=== PATIENT | male | born 1960 | race Two or more races ===

== ENCOUNTER 2023-03-08 16:57 | Inpatient (IN) | payer MEDICAID ==
[~2023-03-08] VITALS: Ht 160 cm; Wt 66.2 kg
[2023-03-08] MEDS ORDERED: ZOLPIDEM TARTRATE 10 MG TABLET PO PRN (20:45)
[2023-03-08 22:11] VITALS: BP 130/79; PULSE 82; RESP 18; TEMP 97.6; O2SAT 96
[2023-03-08] MEDS ORDERED: INFLUENZA VIRUS VACCINE QVS 2023-24 (6MO+)/PF 60 MCG/0.5 ML SYRINGE IM. ONE (22:30)
[2023-03-09] MEDS: LORazepam 2 MG TABLET PO PRN (03:42)
[2023-03-09] MEDS: HALOPERIDOL 5 MG TABLET PO PRN (03:42)
[2023-03-09] MEDS ORDERED: BACITRACIN 28 GM OINTMENT TP PRN (07:15)
[2023-03-09] MEDS ORDERED: ACETAMINOPHEN 325 MG TABLET PO PRN (07:15)
[2023-03-09] MEDS ORDERED: ONDANSETRON HCL 4 MG TABLET PO PRN (07:15)
[2023-03-09] MEDS ORDERED: OMEPRAZOLE 20 MG CAPSULE PO PRN (07:15)
[2023-03-09] MEDS ORDERED: LOPERAMIDE HCL 2 MG CAPSULE PO PRN (07:15)
[2023-03-09] MEDS ORDERED: DOCUSATE SODIUM 100 MG CAPSULE PO PRN (07:15)
[2023-03-09] MEDS ORDERED: PETROLATUM,WHITE 28 GM JELLY TP PRN (07:15)
[2023-03-09] MEDS ORDERED: MAGNESIUM HYDROXIDE SUSPENSION 30 ML UDCUP PO PRN (07:15)
[2023-03-09] MEDS ORDERED: CloNIDine HCL 0.1 MG TABLET PO PRN (07:15)
[2023-03-09] MEDS ORDERED: BENZOCAINE/MENTHOL LOZENGE PO PRN (07:15)
[2023-03-09] MEDS ORDERED: MAG HYDROX/ALUMINUM HYD/SIMETH ES 30 ML SUSPENSION UDCUP PO PRN (07:15)
[2023-03-09] MEDS ORDERED: ALBUTEROL SULFATE HFA 90 MCG/PUFF 8 GM INHALER IH PRN (07:15)
[2023-03-09] MEDS ORDERED: IBUPROFEN 600 MG TABLET PO PRN (07:15)
[2023-03-09 07:53] LABS: BASOPHILS % (AUTO) 2.7 % (0.0-2.0); EOSINOPHILS % (AUTO) 5.9 % (1.0-6.0); HEMATOCRIT 45.3 % (41-53); HEMOGLOBIN 15.2 g/dL (13.5-17.5); LYMPHOCYTES # (AUTO) 1.6 K/uL (1.0-4.8); LYMPHOCYTES % (AUTO) 23.2 % (22.0-44.0); MEAN CORPUSCULAR HEMOGLOBIN 32.9 pg (26.0-34.0); MEAN CORPUSCULAR HGB CONC 33.6 G/dL (31.0-37.0); MEAN CORPUSCULAR VOLUME 98 fL (80-100); MONOCYTES # (AUTO) 0.7 K/uL (0.1-1.0); MONOCYTES % (AUTO) 10.6 % (2.0-9.0); NEUTROPHILS % (AUTO) 57.6 % (40.0-70.0); PLATELET COUNT (AUTO) 328 K/uL (150-450); RED BLOOD CELL COUNT(AUTO) 4.62 MIL/uL (4.50-5.90); RED CELL DISTRIBUTION WIDTH 13.6 % (11.5-14.5)
[2023-03-09 08:19] LABS: ALANINE AMINOTRANSFERASE 27 U/L (12-78); ALBUMIN 2.9 g/dL (3.4-5.0); ALKALINE PHOSPHATASE 81 U/L (46-116); ANION GAP 8 mmol/L (8-16); ASPARTATE AMINOTRANSFERASE 24 U/L (15-37); BILIRUBIN,TOTAL 0.3 mg/dL (0.1-1.0); CALCIUM, TOTAL 8.6 mg/dL (8.8-10.5); CARBON DIOXIDE 24 mmol/L (22-29); CHLORIDE 112 mmol/L (98-107); CHOL/HDL RATIO 2.9 (4.2-7.3); CHOLESTEROL 129 mg/dL (131-200); CREATININE 0.94 mg/dL (0.60-1.30); FREE T4 (FREE THYROXINE) 0.99 ng/dL (0.76-1.46); GLOMERULAR FILTR. RATE CALC > 60 mL/min (>60); GLUCOSE,RANDOM 97 mg/dL (70-110); HDL CHOLESTEROL 44 mg/dL (40-60); LDL CHOL (CALC.) 72 mg/dL (0-130); POTASSIUM 4.5 mmol/L (3.5-5.1); SODIUM SERUM 144 mmol/L (136-145); T4 (THYROXINE) 6.4 mcg/dL (4.7-13.3); THYROID STIMULATING HORMONE 0.62 uIU/mL (0.36-3.74); TRIGLYCERIDES 66 mg/dL (15-150); UREA NITROGEN, BLOOD 18 mg/dL (7-18)
[2023-03-09 08:21] VITALS: BP 140/72; PULSE 78; RESP 17; TEMP 97.8; O2SAT 98
[2023-03-09 08:36] LABS: HEMOGLOBIN A1C 5.5 % (3.8-5.6)
[2023-03-09 20:00] VITALS: BP 139/80; PULSE 88; RESP 17; TEMP 97.7; O2SAT 98
[2023-03-09] MEDS: OLANZapine 10 MG TABLET PO SCH (20:02)
[2023-03-10 07:57] VITALS: BP 141/73; PULSE 77; RESP 17; TEMP 98; O2SAT 98
[2023-03-10 08:00] VITALS: BP 141/73; PULSE 77; RESP 17; TEMP 98; O2SAT 98
[2023-03-10] MEDS: LORazepam 2 MG TABLET PO PRN (13:26)
[2023-03-10 15:39] VITALS: RESP 17
[2023-03-10 16:39] VITALS: RESP 16
[2023-03-10] MEDS: OLANZapine 10 MG TABLET PO SCH (20:01)
[2023-03-10 22:46] VITALS: BP 118/65; PULSE 65; RESP 17; TEMP 98; O2SAT 98
[2023-03-11 08:04] VITALS: BP 118/65; PULSE 69; RESP 17; TEMP 98.1; O2SAT 98
[2023-03-11 16:20] VITALS: BP 131/93; PULSE 93; RESP 17; TEMP 98; O2SAT 98
[2023-03-11] MEDS: LORazepam 2 MG TABLET PO PRN (16:26)
[2023-03-11] MEDS: HALOPERIDOL 5 MG TABLET PO PRN (16:26)
[2023-03-11] MEDS: NICOTINE POLACRILEX 4 MG LOZENGE PO PRN (17:25)
[2023-03-11] MEDS: OLANZapine 10 MG TABLET PO SCH (20:27)
[2023-03-11 21:47] VITALS: BP 138/83; PULSE 83; RESP 17; TEMP 98.3; O2SAT 98
[2023-03-12 07:31] LABS: APPEARANCE,URINE CLEAR (CLEAR); BILIRUBIN,URINE NEGATIVE (NEGATIVE); COLOR,URINE LIGHT YELLOW (YELLOW); GLUCOSE, URINE (UA) NEGATIVE (NEGATIVE); KETONES,URINE NEGATIVE (NEGATIVE); LEUKOCYTE ESTERASE ,URINE NEGATIVE (NEGATIVE); NITRATE,URINE NEGATIVE (NEGATIVE); OCCULT BLOOD,URINE NEGATIVE (NEGATIVE); PH,URINE 5.5 (5.0-8.0); PH,URINE DRUG SCREEN 5.5 (5.0-8.0); PROTEIN,URINE NEGATIVE (NEGATIVE); SPECIFIC GRAVITIY, URINE 1.016 (1.003-1.030); UROBILINOGEN,URINE <=1.0 mg/dL (<=1.0)
[2023-03-12 07:40] LABS: ALCOHOL, URINE DRUG SCREEN NEGATIVE (NEGATIVE); AMPHET/METH SCREEN,URINE POSITIVE (NEGATIVE); BARBITURATE SCREEN, URINE NEGATIVE (NEGATIVE); BENZODIAZEPINES SCREEN,URINE NEGATIVE (NEGATIVE); CANNABINOID SCREEN,URINE POSITIVE (NEGATIVE); COCAINE SCREEN,URINE NEGATIVE (NEGATIVE); METHADONE SCREEN, URINE NEGATIVE (NEGATIVE); OPIATE SCREEN,URINE NEGATIVE (NEGATIVE); PHENCYCLIDINE SCREEN,URINE NEGATIVE (NEGATIVE)
[2023-03-12 08:21] VITALS: BP 130/89; PULSE 78; RESP 18; TEMP 98; O2SAT 99
[2023-03-12] MEDS: NICOTINE POLACRILEX 4 MG LOZENGE PO PRN (13:10)
[2023-03-12] MEDS: OLANZapine 10 MG TABLET PO SCH (20:27)
[2023-03-12 20:29] VITALS: BP 131/88; PULSE 90; RESP 18; TEMP 97.7; O2SAT 99
[2023-03-13 08:10] VITALS: BP 146/90; PULSE 110; RESP 17; TEMP 98; O2SAT 98
[2023-03-13] MEDS: NICOTINE POLACRILEX 4 MG LOZENGE PO PRN (15:05)
[2023-03-13] MEDS: OLANZapine 10 MG TABLET PO SCH (20:05)
[2023-03-13 21:12] VITALS: BP 155/87; PULSE 108; RESP 18; TEMP 98.1; O2SAT 98
[2023-03-14 08:23] VITALS: BP 108/77; PULSE 89; RESP 18; TEMP 97.9; O2SAT 98
[2023-03-14] MEDS ORDERED: OLAN10TA74 PO (16:42)
== END 2023-03-14 17:15 | disposition home or self-care (01) | DRG 750 ==
LOC: B2S 20:41
PROVIDERS: ADMIT Psychiatry & Neurology Psychiatry; ATTEND Psychiatry & Neurology Psychiatry
DX: F20.9 Schizophrenia, unspecified (principal); R45.851 Suicidal ideations; G47.00 Insomnia, unspecified; F19.10 Other psychoactive substance abuse, uncomplicated; F41.9 Anxiety disorder, unspecified; K59.00 Constipation, unspecified; F32.9 Major depressive disorder, single episode, unspecified
CPT/HCPCS: 80053; 80061; 80307; 81003; 83036; 84436; 84439; 84443; 85025; 86592; Q9967